=== PATIENT | female | born 1960 | race Caucasian/White ===

== ENCOUNTER 2018-11-21 10:39 | Day surgery (SDC) | payer OTHER, SELFPAY ==
[2018-11-14 10:42] VITALS: BMI 26.7
[2018-11-21] VITALS (13 sets, daily range): BP systolic 98–128; BP diastolic 62–79; PULSE 56–87; RESP 10–16; TEMP 36.2–36.9; O2SAT 94–114; BMI 26.7
[2018-11-21] MEDS: LACTATED RINGERS 1,000 ML 42 ML IV (11:07)
[2018-11-21] MEDS: CEFAZOLIN 2 GM/100 ML FROZ.PIGGY IV (12:10)
[2018-11-21] MEDS: BUPIVACAINE 0.5% W/ EPI (PF) VIAL 30 ML INJ (12:36)
[2018-11-21] MEDS: fentaNYL 100 MCG/2 ML INJ 50 MCG IV (13:08)
--- NOTE | 2018-11-21 13:27 | P.OP_ITS ---
Operative Date/Time/Diagnoses Date of procedure: 11/21/18 Time of procedure: 11:19 Pre-op diagnosis: 1. Painful retained ankle hardware Post-op diagnosis: same Procedure & Clinicians Procedure: 1. Right ankle hardware removal including plate and screws 2. Irrigation and debridement of scar tissue and bone Same procedure as scheduled: Yes Indications: Ms. Jara had ankle fracture status post ORIF. Her fx is fully healed. Patient had significant weight loss with significantly more prominiment hardware that is painful with shoewear over the last 6 months. Patient failed conservative management and elected to proceed with surgery removal of hardware. Surgeon: Shona Dickey Case Management Coordinator: Loida Stiles Click Yes if Unassisted: No Anesthesia Type: General Operative Notes Closure Type: primary Specimen(s): none sent Estimated Blood Loss (mL): 2 Blood products transfused: none Tourniquet time (min): 20 Procedure in detail: Patient was seen in the preoperative area. Risks and benefits of the surgery was discussed with the patient. Informed consent was ob tained from the patient and placed in the chart. Surgical site was marked. Patient was taken to the operative room. General anesthesia was administered. Prophylactic antibiotic was given to the patient less than 30 min before the incision was made. Patient was placed into a supine position on the foperating table. a tourniquet was placed on patient's right upper thigh. Patient's right ankle was then prepped and draped in the sterile fashion. Time-out was performed at this time. An Esmarch was used to exsanguinate the right leg. tourniquet was then inflated to 250 mm mercury. A lateral incision was made over patient's previous scar over her right ankle. Bovie was used to dissect down to the level the metal hardware. Once the hardware was exposed small frag screwdriver was used to rem ove all 7 laterally placed screws and they were removed without any difficulty and all had good purchase. The plate was then easily removed from adjacent to the bone. a small rongeur was used to debride the holes and scar tissue or the hardware was removed by removing any and healthy appearing scar tissue and bony edges. Once the hardware was removed and debridement was completed, the wound was then irrigated with sterile normal saline. the wound was then closed with 2-0 Vicryl and 3-0 nylon sutures for the skin. patient's right leg was placed into a sterile dressing. Patient tolerated the procedure well. patient was woken up from anesthesia and transferred recovery room stable condition. Patient will be allowed to weightbear as tolerated and it is instructed to limit her prolonged hiking and backpacking with significant backpack. Complications: none Condition: stable Disposition: same day surgery Plan for aftercare: Discharge to home
[2018-11-21] MEDS: OXYCODONE/ACETAMINOPHEN 5/325 TABLET 1 TAB PO (13:34)
== END 2018-11-21 14:16 | disposition home or self-care (01) ==
PROVIDERS: PCP Family Medicine; Visit Provider Orthopaedic Surgery Orthopaedic Surgery of the Spine
PROC: (CPT 20680; principal; 2018-11-21 12:45)
DX: T84.84XA Pain due to internal orthopedic prosthetic devices, implants and grafts, initial encounter (principal)
CPT/HCPCS: 20680; J0690; J2250; J2405; J2704; J3010